=== PATIENT | female | born 1980 | race Caucasian/White ===

== ENCOUNTER → 2019-08-03 | Outpatient (CLI) | payer BC ==
[~2019-08-03] MED LIST: HYOSCYAMINE0.375 MG PO; Z LOESTRIN; Z.0.NEXIUM40 MG
== END ==
LOC: MAMMO 12:29
PROVIDERS: ATTEND Family Medicine
DX: Z12.31 Encounter for screening mammogram for malignant neoplasm of breast (principal)
CPT/HCPCS: 77067

== ENCOUNTER 2022-02-22 17:49 | Emergency (ER) | payer BC ==
[~2022-02-22] VITALS: Ht 172.7 cm; Wt 90.7 kg
[2022-02-22] MEDS ORDERED: KETOROLAC TROMETHAMINE 30 MG/ML VIAL IV STA (18:04)
[2022-02-22 18:41] LABS: BASOPHILS # (AUTO) 0.1 (0.0-0.1); BASOPHILS % 0.7 % (0.0-1.0); EOSINOPHILS # (AUTO) 0.2 (0.0-0.4); EOSINOPHILS % 1.5 % (0.0-6.0); HEMATOCRIT 41.9 % (34.2-44.1); HEMOGLOBIN 13.1 g/dL (12.0-16.0); LYMPHOCYTES # (AUTO) 3.9 (1.0-3.2); LYMPHOCYTES % 25.2 % (18.0-39.1); MEAN CORPUSCULAR HEMOGLOBIN 28.4 pg (28-32); MEAN CORPUSCULAR HGB CONC 31.3 g/dL (31-35); MEAN CORPUSCULAR VOLUME 90.7 fL (81-99); MONOCYTES # (AUTO) 0.9 (0.2-0.8); MONOCYTES % 5.7 % (4.4-11.3); NEUTROPHILS # (AUTO) 10.3 (2.1-6.9); NEUTROPHILS % 66.4 % (38.7-80.0); PLATELET COUNT 381 x10e3/uL (140-360); RED BLOOD COUNT 4.62 x10e6/uL (3.6-5.1)
[2022-02-22 18:59] LABS: ANION GAP 17.6 mmol/L (8-16); CALCIUM 10.1 mg/dL (8.4-10.2); POTASSIUM 3.6 mmol/L (3.5-5.1)
[2022-02-22 19:06] LABS: CREATINE KINASE MB 0.7 ng/mL (0-5.0)
[2022-02-22] MEDS ORDERED: NAPROSYN500 MG PO (19:57)
[2022-02-22 20:28] VITALS: BP 142/102
== END 2022-02-22 20:29 | disposition home or self-care (01) ==
LOC: ER 17:53
DX: R07.89 Other chest pain (principal); R09.1 Pleurisy; F41.9 Anxiety disorder, unspecified; E28.2 Polycystic ovarian syndrome; Z87.19 Personal history of other diseases of the digestive system
CPT/HCPCS: 36415; 71045; 80053; 81025; 82550; 82553; 84484; 85025; 85379; 93005; 99284; J1885